=== PATIENT | male | born 2000 | race Caucasian/White ===

== ENCOUNTER 2021-01-07 00:35 | Emergency (ER) | payer OTHER ==
[2021-01-07] MEDS ORDERED: TETANUS/DIPHTHERIA/PERTUSSIS 0.5 ML SYRINGE IM ONE (00:57)
--- NOTE | 2021-01-07 01:02 | ED Physician Documentation ---
PD HPI SKIN - Stated complaint Stated Complaint: R RING FINGER LACERATION - Chief complaint Chief Complaint: Laceration - History obtained from History obtained from: Patient - Additional information Additional information: 20yM p/w laceration of R 4th finger while working on some equipment at the [employer]. +bleeding. no other injury. Review of Systems Skin: reports: Laceration (s) PD PAST MEDICAL HISTORY - Past Medical History Past Medical History: No - Past Surgical History Past Surgical History: No - Present Medications Home Medications: Ambulatory Orders Medication Instructions Recorded Confirmed No Known Home Medications 01/07/21 01/07/21 - Allergies Allergies/Adverse Reactions: Allergies Allergy/AdvReac Type Severity Reaction Status Date / Time No Known Drug Allergies Allergy Verified 01/07/21 00:43 - Social History Does the pt smoke?: No Smoking Status: Never smoker Does the pt drink ETOH?: No Does the pt have substance abuse?: No - Immunizations Immunizations are current?: Yes PD ED PE NORMAL - Vitals Vital signs reviewed: Yes - General General: Alert and oriented X 3, No acute distress, Well developed/nourished - Derm Derm: Normal color, Warm and dry, Other (0.5 cm lac to distal tip of R 4th finger) - Neuro Neuro: No motor deficit, No sensory deficit Results - Vitals Vitals: Vital Signs - 24 hr 01/07/21 01/07/21 00:43 00:48 Temperature 36.6 C 36.6 C Heart Rate 97 97 Respiratory 16 16 Rate Blood Pressure 139/93 H 139/93 H O2 Saturation 100 100 Oxygen O2 Source Room air Procedures - Laceration (location) Finger right Length in cm: 0.5 Wound type: Linear, Superficial Neurovascular status: Sensory intact, Motor intact Tendon involvement: Tendon intact Wound preparation: Irrigated copiously NS, Other (finger tourniquet) Skin layer closure: Dermabond Other: Patient tolerated well, No complications, Neurovascular intact, Tetanus booster given PD MEDICAL DECISION MAKING - ED course ED course: 20yM p/w laceration of finger, repaired with skin glue. Return precautions given. plan to f/u with [facility]. Departure - Departure Disposition: 01 Home, Self Care Clinical Impression: Laceration of finger Condition: Good Instructions: ED Laceration All Comments: You were seen in the emergency department for a laceration of your finger. Dermabond skin glue was applied after irrigation with sterile saline. [place]. Return to the ED if you have signs or symptoms of infection.
[2021-01-07 01:19] VITALS: BP 138/89
== END 2021-01-07 01:09 | disposition home or self-care (01) ==
LOC: ED 00:35
DX: S61.214A Laceration without foreign body of right ring finger without damage to nail, initial encounter (principal); W26.9XXA Contact with unspecified sharp object(s), initial encounter; Y99.1 Military activity; Z23 Encounter for immunization
CPT/HCPCS: 12001; 90471; 99282; 99283